=== PATIENT | male | born 1985 | race Caucasian/White ===

== ENCOUNTER 2019-04-20 20:20 | Emergency (ER) | payer OTHER, SELFPAY ==
[2019-04-20 20:20] VITALS: BP 154/119; PULSE 98; RESP 18; TEMP 36.8; O2SAT 98; BMI 26.4
--- NOTE | 2019-04-20 20:21 | ED.RN ---
NO OLD EKGS IN MUSE
--- NOTE | 2019-04-20 20:27 | EKG12_ITS ---
Test Reason : CP Blood Pressure : / mmHG Vent. Rate : 091 BPM Atrial Rate : 091 BPM P-R Int : 166 ms QRS Dur : 102 ms QT Int : 382 ms P-R-T Axes : 059 054 041 degrees QTc Int : 469 ms Normal sinus rhythm Normal ECG Confirmed by WILLIAMS TEMPLETON, QI ([id number]), editor news JORDYN RODRIGUEZ ([id number]) on 04/22/2019 8:59:28 AM Referred By: BB Confirmed By:QI KRAMER MD
--- NOTE | 2019-04-20 20:35 | RAD_ITS ---
STUDY: X-RAY CHEST REASON FOR EXAM: Male, 34 years old. chest pain post influenza TECHNIQUE: Frontal and lateral views of the chest. COMPARISON: None. FINDINGS: Azygos lobe. The lungs are clear and expanded. There is no demonstrated pleural abnormality. Normal size heart. Normal mediastinum and adela. Normal visualized pulmonary arteries. Normal visualized aortic arch and descending thoracic aorta. Normal visualized thoracic spine. Normal visualized ribs, clavicles, and shoulders. There is no demonstrated abnormality of the visualized soft tissue structures of the upper abdomen. RAD/Chest PA and Lateral IMPRESSION: No acute pulmonary findings. Electronically Signed: Garo Del Toro MD at 21:09 EST Tel , Service support ,
--- NOTE | 2019-04-20 20:41 | ED.VISSUMM ---
- ER Visit Summary Date of Service: 04/20/19 Chief Complaint: Chest pain History of Present Illness: The patient is a 34 M no seen in past medical or surgical history. States since Sunday he has had lower sternal chest pain. He says not deep in his chest this morning service. Said he played basketball but does not remember getting hit with anything. Is not associated with exertion. No dyspnea. No fever or chills. He has had a recent cough. He denies any leg pain or swelling. No history of DVT or PE. No hemoptysis. No recent travel, surgery or immobilization. Patient also states that the pain is worse with movement such as twisting or turning about his trunk. The triage note states he had recent influenza he did not he had gastroenteritis about 4 weeks ago. Physical Examination: Young male no acute distress vital signs stable afebrile. Pulse ox 90% on room air no signs of hypoxia. H EENT exam unremarkable. Neck nontender no lymphadenopathy. Lungs clear to auscultation bilaterally. Heart regular rate and rhythm no murmur rate about 90. Chest wall is reproducible chest wall discomfort on his lower sternal area. There is no ecchymosis or bruising. No subcu air crepitance. Normal external exam other than reproducible tenderness. Abdomen soft nontender normal bowel sounds no peritoneal signs. Extremities moves all 4. Equal symmetrical radial pulses. 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 Normal range of motion of both lower extremities. Calves are nontender without edema or cords. Neurologically is awake and alert with no focal motor deficits. Test Results: EKG shows a sinus rhythm rate of 91 with no acute signs of [place] or ischemia. Chest x-ray 2 views AP and lateral read by myself shows no acute abnormality. Normal cardiac silhouette. Normal mediastinum. Normal lung arguello. Emergency Department Course and Treatment: History and exam are both consistent with reproducible chest wall pain. Ice to the area. Motrin for pain. Follow-up if not improving. Return if worse. Treatment Plan: Motrin for pain. Ice to his chest wall. Follow-up. Disposition: Discharge Impression: Acute chest wall pain This note was generated with [employer] dictation software. It may contain incorrect words, spelling, and punctuation that were not noted in review of the chart prior to signing ED Disposition - Plan for ED Patient: Disposition: Home or Assisted Living Instructions: CHEST WALL PAIN, Costochondritis Referrals: Marcelo Morris MD [STAFF PHYSICIAN] - 3-5 Days if not improving Additional Instructions: Ice to chest wall. Motrin for pain and inflammation and Tylenol for pain. Follow-up if not improving. Your EKG today was normal. Your chest x-ray was normal.
--- NOTE | 2019-04-20 20:44 | ED.DEP ---
ED Disposition - Plan for ED Patient: Disposition: Home or Assisted Living Instructions: CHEST WALL PAIN, Costochondritis Referrals: Marcelo Morris MD [STAFF PHYSICIAN] - 3-5 Days if not improving Additional Instructions: Ice to chest wall. Motrin for pain and inflammation and Tylenol for pain. Follow-up if not improving. Your EKG today was normal. Your chest x-ray was normal.
[2019-04-20 20:47] VITALS: BP 140/95; PULSE 93; RESP 14; O2SAT 95
== END 2019-04-20 20:54 | disposition home or self-care (01) ==
LOC: ED 20:51
PROVIDERS: Emergency Provider Emergency Medicine
DX: R07.89 Other chest pain (principal)
CPT/HCPCS: 71046; 93005; 99281; 99282

== ENCOUNTER 2025-03-21 14:27 | Emergency (ER) | payer OTHER, SELFPAY ==
[2025-03-21 14:28] VITALS: BP 150/96; PULSE 90; RESP 14; TEMP 36.1; O2SAT 98
[2025-03-21 14:37] VITALS: BMI 28.3
--- NOTE | 2025-03-21 14:44 | RAD_ITS ---
PROCEDURE: TIBIA FIBULA 2 VIEWS 03/21/2025 REASON FOR EXAM: INJURY DISTAL LOWER LEG. [place] a pop while playing basketball. TECHNIQUE: Procedure Code: RADTF Modality: DX Procedure: TIBIA FIBULA 2 VIEWS Laterality: Right COMPARISON: None. FINDINGS: BONES: No acute fracture or focal osseous lesion. Deformity and bone fragmentation of the tibial tuberosity, consistent with remote [place]-Schlatter disease. JOINTS: No dislocation. The joint spaces are normal. SOFT TISSUES: The soft tissues are unremarkable. RAD/Tibia & Fibula 2 Views IMPRESSION: NO ACUTE FRACTURE OR DISLOCATION. Reading Location: [id number]
--- NOTE | 2025-03-21 14:46 | ED.VIS.LOWEX ---
HPI History of Present Illness Chief Complaint: Lower Extremity Injury Informant: patient Narrative Narrative: Patient is a 39-year-old male presenting with left ankle pain after hearing a pop while playing basketball today around noon. - Reports hearing a pop in the left ankle area while playing basketball. - Denies significant pain at the time of the incident, but noticed discomfort afterward. - Able to ambulate but with pain. - Pain is localized to the posterior aspect of the lower leg, worsens with dorsiflexion. - Denies known direct trauma. PFSH PFSH Medical History no medical history no medical history Home Medications ?Medication ?Instructions ?Recorded ?Last Taken ?Type No Known/Unobtainable [No Known 04/22/13 Unknown History Home Medications] Allergy/AdvReac Type Severity Reaction Status Date / Time bee venom protein (honey bee) Allergy Swelling Verified 03/21/25 14:29 naproxen (From Aleve) Allergy Angioedema Verified 03/21/25 14:29 Family History no significant family his Surgical History no surgical history Social History Smoking Status: Never smoker ROS ROS ED Constitutional Constitutional ED: Denies chills or fever(s) Musculoskeletal Musculoskeletal: Reports extremity pain; Denies neck pain Integumentary Denies Abrasions, rash or wounds Neurologic Neurologic: Denies paresthesias or weakness EXAM Physical Exam Const Vital Signs: 03/21/25 14:28 Temperature 97 F L Temperature Source Temporal Pulse Rate 90 Respiratory Rate 14 Blood Pressure 150/96 H Blood Pressure Mean 114 Pulse Ox 98 Oxygen Delivery Method Room Air Positive well nourished and well developed General Appearance ED: well developed and NAD Neck full ROM and supple Back/Spine normal ROM and normal to inspection Extremity normal to inspection and full ROM Extremity Narrative: No bony tenderness throughout the right lower leg, ankle, foot. No swelling or deformity. Normal Reyes test Achilles appears to be intact patient able to plantarflex against resistance. With passive dorsiflexion he has pain in the distal posterior lower leg, basically in the distal gastroc/soleus area. There is mild tenderness here. All compartments are soft nondistended. Not able to elicit any severe pain. Neuro oriented x3, no focal motor deficits and no sensory deficits noted Sensorium / Orientation: alert Psych mental status grossly normal and thought process normal Skin no wounds Rashes: no rashes MDM MDM MDM Narrative Medical decision making narrative: Assessment: The patient is a 39-year-old male presenting for acute right posterior lower leg pain after hearing a ?pop? while playing basketball earlier today. Exam shows mild tenderness in the mid-calf with pain on passive stretch but intact plantarflexion strength and no visible defect, swelling, or neurovascular compromise. Differential included fracture, muscle or tendon rupture, and compartment syndrome. Given normal two-view tibia/fibula radiographs and preserved function, a partial tear/strain of the gastrocnemius?soleus complex is most likely. Normal X-ray findings and absence of swelling or neurologic deficits make fracture, complete tendon rupture, and compartment syndrome unlikely at this time. Plan: - Provided oral ibuprofen for analgesia in ED - Advised relative rest and weight bearing as tolerated with gradual return to activity - Educated on signs of worsening pain, increasing swelling, numbness, or weakness suggestive of compartment syndrome; instructed to return if these occur - Outpatient orthopedic follow-up arranged - Discharged home in stable condition Diagnostics: - X-ray right tibia/fibula, 3 views ? normal, no fracture or dislocation. Independently interpreted by me, Robert Norwood; radiology concurs. Portions of this note were generated using voice recognition software ([employer] Dictation). I have reviewed the contents and every effort has been made to ensure accuracy; however, inadvertent errors in grammar, spelling, punctuation, or word choice may occur, that were not noted before signing the document and should not alter the intended clinical meaning. Radiography Diagnostic Testing: Clinical Impression(s) from Imaging Studies Tibia/Fibula X-Ray 03/21/25 14:44 IMPRESSION: NO ACUTE FRACTURE OR DISLOCATION. Reading Location: [facility] Discharge Plan Triage Chief Complaint: Lower Extremity Injury ED Provider: Robert Norwood Dx/Rx/DC Orders Clinical Impression: Strain of right calf muscle Instructions: Gastrocnemius Muscle Tear Prescriptions: No Action No Known Home Medications Primary Care Provider: Care Physician,No Primary Referrals: Augusto Vazquez MD [Med Staff - Active Staff, Orthopedics] - 3-5 Days if not improving Activity Restrictions/Additional Instructions: - Suspected partial tear of your calf muscle (gastrocnemius/soleus); tibia and fibula X-rays (2 views) were normal, ruling out fracture. - Keep the leg in relative rest?avoid activities that worsen your pain. - Bear weight as tolerated; you don?t need to stay off your foot completely. - Take [id number] ibuprofen as needed for pain relief, also may apply ice pack. - Monitor for signs of compartment syndrome (such as increasing pain, tightness, numbness or swelling) and return to the emergency department if they occur. - Follow up with orthopedics as discussed to review your progress and any further treatment needs. Print Language: Kyrgyz Disposition Disposition: Home, Self Care
--- OUTSIDE RECORDS SUMMARY | 2025-03-21 14:58 | XMS RPT_ITS | CCD ---
Author Organization [employer] [facility] [employer] [facility] Results Test Name Value Interpretation Reference Range Facil ity Discharge Instructionon Discharge Instruction [facility] Medical Records Department [address] [place] [address] Discharge Instruction 04/20/192043 MR#: [id number] Acct: [id number] Name: OBDULIO VELASQUEZ Rep #: [id number] : 1985 34 From: Olivier Marquez MD PCP: Care Physician, No Primary Status: DEP ER ED Disposition - Plan for ED Patient: Disposition: Home or Assisted Living Instructions: CHEST WALL PAIN, Costochondritis Referrals: Marcelo Morris MD [STAFF PHYSICIAN] - 3-5 Days if not improving Additional Instructions: Ice to chest wall. Motrin for pain and inflammation and Tylenol for pain. Follow-up if not improving. Your EKG today was normal. Your chest x-ray was normal. What to do if you have Problems For any increased pain, shortness of breath, bleeding, nausea or vomiting, chest pain, or any unexpected problems, contact your Primary Care Provider. Call [facility] ([phone]) or report to the closest Emergency Room. Call 911 if necessary. 04/20/19 2300 Date Olivier Marquez MD Cosigner Signature (If Indicated): Date CC: No Primary Care Physician Normal [facility] Emergency Department Summary on 04-21-2019 Emergency Department Summary [facility] Medical Records Department [address] [place] [address] Emergency Department Summary 04/20/19 204 MR#: [id number] Acct: [id number] Name: OBDULIO VELASQUEZ Rep #: [id number] : 1985 34 From: Olivier Marquez MD PCP: Care Physician, No Primary Status: DEP ER - ER Visit Summary Date of Service: 04/20/19 Chief Complaint: Chest pain History of Present Illness: The patient is a 34 M no seen in past medical or surgical history. States since Sunday he has had lower sternal chest pain. He says not deep in his chest this morning service. Said he played basketball but does not remember getting hit with anything. Is not associated with exertion. No dyspnea. No fever or chills. He has had a recent cough. He denies any leg pain or swelling. No history of DVT or PE. No hemoptysis. No recent travel, surgery or immobilization. Patient also states that the pain is worse with movement such as twisting or turning about his trunk. The triage note states he had recent influenza he did not he had gastroenteritis about 4 weeks ago. Physical Examination: Young male no acute distress vital signs stable afebrile. Pulse ox 90% on room air no signs of hypoxia. H EENT exam unremarkable. Neck nontender no lymphadenopathy. Lungs clear to auscultation bilaterally. Heart regular rate and rhythm no murmur rate about 90. Chest wall is reproducible chest wall discomfort on his lower sternal area. There is no ecchymosis or bruising. No subcu air crepitance. Normal external exam other than reproducible tenderness. Abdomen soft nontender normal bowel sounds no peritoneal signs. Extremities moves all 4. Equal symmetrical radial pulses. 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 Normal range of motion of both lower extremities. Calves are nontender without edema or cords. Neurologically is awake and alert with no focal motor deficits. Test Results: EKG shows a sinus rhythm rate of 91 with no acute signs of [place] or ischemia. Chest x-ray 2 views AP and lateral read by myself shows no acute abnormality. Normal cardiac silhouette. Normal mediastinum. Normal lung arguello. Emergency Department Course and Treatment: History and exam are both consistent with reproducible chest wall pain. Ice to the area. Motrin for pain. Follow-up if not improving. Return if worse. Treatment Plan: Motrin for pain. Ice to his chest wall. Follow-up. Disposition: Discharge Impression: Acute chest wall pain This note was generated with [employer] dictation software. It may contain incorrect words, spelling, and punctuation that were not noted in review of the chart prior to signing ED Disposition - Plan for ED Patient: Disposition: Home or Assisted Living Instructions: CHEST WALL PAIN, Costochondritis Referrals: Marcelo Morris MD [STAFF PHYSICIAN] - 3-5 Days if not improving Additional Instructions: Ice to chest wall. Motrin for pain and inflammation and Tylenol for pain. Follow-up if not improving. Your EKG today was normal. Your chest x-ray was normal. What to do if you have Problems For any increased pain, shortness of breath, bleeding, nausea or vomiting, chest pain, or any unexpected problems, contact your Primary Care Provider. Call [facility] ([phone]) or report to the closest Emergency Room. Call 911 if necessary. 04/20/19 2300 Date Olivier Marquez MD Cosigner Signature (If Indicated): Date CC: No Primary Care Physician Normal [facility] Chest PA and Lateralon 04-20 Chest PA and Lateral [facility] Imaging Services [address] [place] [address] Chest PA and Lateral MR#: [id number] Acct: [id number] Name: OBDULIO VELASQUEZ Rep #: [id number] : 1985 M 34 From: Garo Del Toro MD PCP: Care Physician, No Primary Status: DEP ER Study: Chest PA and Lateral Date of Exam: 04/20/19 Exam# [id number] Ordering Dr: Olivier Marquez MD STUDY: X-RAY CHEST REASON FOR EXAM: Male, 34 years old. chest pain post influenza TECHNIQUE: Frontal and lateral views of the chest. COMPARISON: None. FINDINGS: Azygos lobe. The lungs are clear and expanded. There is no demonstrated pleural abnormality. Normal size heart. Normal mediastinum and adela. Normal visualized pulmonary arteries. Normal visualized aortic arch and descending thoracic aorta. Normal visualized thoracic spine. Normal visualized ribs, clavicles, and shoulders. There is no demonstrated abnormality of the visualized soft tissue structures of the upper abdomen. RAD/Chest PA and Lateral IMPRESSION: No acute pulmonary findings. Electronically Signed: Garo Del Toro MD at 21:09 EST Tel , Service support , CC: No Primary Care Physician; Olivier Marquez MD Claims Coordinator: Signed Normal [facility] Procedures Date Procedure Procedure Detail Performing Clinician Start: 04-22-2019 12 lead ECG Summary Purpose Family History No Family History Records Found Advance Directives No Advanced Directives Records Found Additional Source Comments (unrecognized sect ion and content) No Status Records Found INFORMATION SOURCE (unrecogn ized section and content) DATE CREATED AUTHOR 04/23/2019 [facility] FOR RECORDS PERTAINING TO PATIENTS WHO ARE OR HAVE BEEN ENROLLED IN A CHEMICAL DEPENDENCY/SUBSTANCEABUSE PROGRAM, SOME INFORMATION MAY BE OMITTED. This clinical summary was aggregated from multiple sources. Caution should be exercised in using it in the provision of clinical care. This summary normalizes information from multiple sources, and as a consequence, information in this document may materially change the coding, format and clinical context of patient data. In addition, data may be omitted in some cases. CLINICAL DECISIONS SHOULD BE BASED ON THE PRIMARY CLINICAL RECORDS. [employer] provides no warranty or guarantee of the accuracy or completeness of information in this document.
[2025-03-21 16:02] VITALS: BP 132/78; PULSE 64; RESP 18; TEMP 36.6; O2SAT 99
== END 2025-03-21 16:03 | disposition home or self-care (01) ==
PROVIDERS: Emergency Provider Emergency Medicine; Visit Provider Emergency Medicine
DX: S86.111A Strain of other muscle(s) and tendon(s) of posterior muscle group at lower leg level, right leg, initial encounter (principal); Y93.67 Activity, basketball
CPT/HCPCS: 73590; 99282